=== PATIENT | female | born 1950 | race Caucasian/White ===

== ENCOUNTER 2022-11-01 08:05 | Day surgery (SDC) | payer MEDICARE ==
[2022-10-30 13:22] VITALS: BMI 18.0
[2022-11-01 09:15] LABS: Hemoglobin 12.2 g/dL (12.0-15.5); Mean Corpuscular Volume 84.9 fl (81.6-98.3); Platelet Count 280 10x3/uL (150-450); RBC Distribution Width 13.9 % (11.5-14.5); Red Blood Cell (RBC) Count 4.36 10x6/uL (3.90-5.03); White Blood Cell (WBC) Count 7.9 10x3/uL (3.5-10.5)
[2022-11-01 09:26] LABS: Anion Gap 13 mmol/L (10-20); BUN (Urea Nitrogen) 24 mg/dL (9.8-20.1); Calc. Creatinine Clearance 41 mL/min (70-130); Calcium 10.1 mg/dL (7.8-10.44); Carbon Dioxide 25 mmol/L (23-31); Chloride 104 mmol/L (98-107); Estimated GFR 59; Glucose 92 mg/dL (83-110); Potassium 4.4 mmol/L (3.5-5.1); Sodium 138 mmol/L (136-145)
[2022-11-01] MEDS ORDERED: Bupivacaine HCl 0.5%/Epinephrine 1:200,000/PF 30 ml Vial ONE (10:12)
[2022-11-01] MEDS ORDERED: Lidocaine 1% PF 5 ML VIAL ONE (10:26)
[2022-11-01] MEDS ORDERED: CEFAZOLIN 2 GM VIAL ONE (10:43)
[2022-11-01] MEDS ORDERED: Fentanyl 100 MCG/2 ML VIAL ONE ×3 (10:58→12:32)
[2022-11-01] MEDS ORDERED: PROPOFOL 20 ML ONE (10:58)
[2022-11-01] MEDS ORDERED: ePHEDrine Sulfate 50 MG/10 ML VIAL ONE (11:08)
[2022-11-01] MEDS ORDERED: Ondansetron PF 4 MG/2 ML Vial ONE (11:20)
[2022-11-01] MEDS ORDERED: Acetaminophen 325 MG TAB PO PRN (12:16)
[2022-11-01] MEDS ORDERED: traMADol HCl 50 MG TAB PO PRN (12:16)
[2022-11-01] MEDS ORDERED: HYDROcodone/Acetaminophen 5/325 mg Tablet ONE (13:20)
== END 2022-11-01 14:25 | disposition home or self-care (01) ==
LOC: CSHSDC 08:05
PROVIDERS: ATTEND Surgery
PROC: 0HBKXZZ Excision of Right Lower Leg Skin, External Approach (ICD-10-PCS; principal; 2022-11-01)
DX: C44.722 Squamous cell carcinoma of skin of right lower limb, including hip (principal); L02.415 Cutaneous abscess of right lower limb; M79.89 Other specified soft tissue disorders; L92.9 Granulomatous disorder of the skin and subcutaneous tissue, unspecified; E46 Unspecified protein-calorie malnutrition; Z68.1 Body mass index [BMI] 19.9 or less, adult; J44.9 Chronic obstructive pulmonary disease, unspecified; K21.9 Gastro-esophageal reflux disease without esophagitis; Z79.899 Other long term (current) drug therapy; Z87.891 Personal history of nicotine dependence
CPT/HCPCS: 80048; 85027; 88305; 93005; 93010; J2405; J2704; J3010

== ENCOUNTER 2022-12-06 08:25 | Outpatient (CLI) | payer MEDICARE | END 2022-12-06 08:26 | disposition home or self-care (01) | LOC: CSHWCC 08:25 | PROVIDERS: ATTEND Nurse Practitioner Family | DX: T81.89XD Other complications of procedures, not elsewhere classified, subsequent encounter (principal); R60.0 Localized edema | CPT/HCPCS: 11042; 11045; 97607; 99203; G0463 ==

== ENCOUNTER 2022-12-10 09:31 | Outpatient (CLI) | payer MEDICARE | END 2022-12-10 09:32 | disposition home or self-care (01) | LOC: CSHWCC 09:31 | PROVIDERS: ATTEND Nurse Practitioner Family | DX: T81.89XD Other complications of procedures, not elsewhere classified, subsequent encounter (principal); R60.0 Localized edema | CPT/HCPCS: 11042; 11045; 97607 ==

== ENCOUNTER 2022-12-13 09:49 | Outpatient (CLI) | payer MEDICARE | END 2022-12-13 09:50 | disposition home or self-care (01) | LOC: CSHWCC 09:49 | PROVIDERS: ATTEND Nurse Practitioner Family | DX: T81.89XD Other complications of procedures, not elsewhere classified, subsequent encounter (principal); R60.0 Localized edema | CPT/HCPCS: 29581 ==

== ENCOUNTER 2022-12-24 08:47 | Outpatient (CLI) | payer MEDICARE | END 2022-12-24 08:48 | disposition home or self-care (01) | LOC: CSHWCC 08:47 | PROVIDERS: ATTEND Nurse Practitioner Family | DX: T81.89XD Other complications of procedures, not elsewhere classified, subsequent encounter (principal); R60.0 Localized edema | CPT/HCPCS: 29581 ==

== ENCOUNTER 2024-08-06 08:05 | Outpatient (CLI) | payer MEDICARE | END 2024-08-06 08:06 | disposition home or self-care (01) | LOC: CSHMAMMO 08:05 | PROVIDERS: ATTEND Physician Assistant | DX: Z78.0 Asymptomatic menopausal state (principal); M81.0 Age-related osteoporosis without current pathological fracture | CPT/HCPCS: 77080 ==